=== PATIENT | male | born 1975 | race Caucasian/White ===

== ENCOUNTER 2020-09-11 09:27 | Emergency (ER) | payer OTHER ==
[~2020-09-11] VITALS: Ht 185.4 cm; Wt 103.4 kg
[2020-09-11 09:36] VITALS: BP 128/97
--- NOTE | 2020-09-11 09:40 | NUR ---
SEEN AND EXAMINED BY .
[2020-09-11] MEDS ORDERED: CEPH500C2 PO (09:56)
--- NOTE | 2020-09-11 10:04 | NUR ---
Patient discharged in [employer] custody in stable condition. Written and verbal after care instructions given. Patient verbalizes understanding of instruction.
== END 2020-09-11 10:05 ==
LOC: ER 09:32
DX: L03.115 Cellulitis of right lower limb (principal); E11.9 Type 2 diabetes mellitus without complications; F31.9 Bipolar disorder, unspecified